=== PATIENT | female | born 1960 | race Two or more races ===

== ENCOUNTER 2017-02-28 07:00 | Day surgery (SDC) | payer OTHER ==
[2017-02-21 15:42] VITALS: BMI 32.1
[2017-02-28] MEDS ORDERED: LIDOCAINE HCL 1%, 10 MG/ML (20ML VIAL) ONE (07:49)
[2017-02-28] MEDS ORDERED: ROPIVACAINE HCL 0.5% 30ML VIAL ONE (07:49)
[2017-02-28] MEDS ORDERED: DEXAMETHASONE SOD PHOSPHATE/PF 10 MG/ML SDV ONE (07:49)
--- NOTE | 2017-02-28 08:23 | HP ---
[facility]ellite [facility] - Chief Complaint Chief Complaint: left shoulder pain History of Present Illness: left shoulder pain, decreased ROM History Source: Patient Limitations to Obtaining History: No Limitations - Past Medical History Allergies/Adverse Reactions: Allergies Allergy/AdvReac Type Severity Reaction Status Date / Time No Known Drug Allergies Allergy Verified 02/21/17 15:54 - Current Medications Current Medications: Home Medications Medication Instructions Recorded Insulin Detemir [Levemir Flexpen] 40 unit SQ DAILY 04/26/12 Simvastatin [Zocor -] 40 mg PO HS 04/26/12 Sitagliptin Phos/Metformin HCl 1 each PO BID 04/26/12 [Janumet 50-1,000 mg Tablet] Fluticasone/Salmeterol [Advair 1 each IH PRN PRN 02/21/17 250-50 Diskus] Ibuprofen 800 mg PO PRN PRN 02/21/17 Metoprolol Succinate [Toprol Xl -] 25 mg PO BID 02/21/17 Satellite Physical Exam - Physical Examination Vital Signs: Vital Signs Period Temp Pulse Resp BP Sys/[place]ango Pulse Ox Last 24 Hr 97.5 F 94 16 129/74 97 General Appearance: Well Nourished ENT: Clear Lung: Clear to auscultation Heart: Regular rate & rhythm Breasts: Soft Abdomen: Soft Extremities: No edema Satellite Impression/Plan - Impression/Plan Impression: left shoulder impingement syndrome Operative Procedure: left shoulder arthroscopy, subacromial decompression Date to be Performed: 02/28/17
[2017-02-28] MEDS ORDERED: MIDAZOLAM HCL 2 MG/2 ML SINGLE DOSE VIAL ONE ×2 (08:26)
[2017-02-28] MEDS ORDERED: DEXAMETHASONE SOD PHOSPHATE 4 MG/1 ML VIAL ONE (09:28)
[2017-02-28] MEDS ORDERED: ceFAZolin SODIUM 1 GM VIAL ONE (09:28)
[2017-02-28] MEDS ORDERED: ROCURONIUM BROMIDE 50 MG/5 ML VIAL ONE (09:29)
[2017-02-28] MEDS ORDERED: LIDOCAINE HCL/PF 2% SDV 5ML VIAL ONE (09:29)
[2017-02-28] MEDS ORDERED: ceFAZolin SODIUM 1 GM VIAL IVPB ONE (09:35)
[2017-02-28] MEDS ORDERED: GLYCOPYRROLATE 0.2 MG/1 ML VIAL ONE ×2 (10:44)
[2017-02-28] MEDS ORDERED: NEOSTIGMINE METHYLSULFATE 0.5 MG/ML - 10 ML MDV ONE (10:44)
--- NOTE | 2017-02-28 10:49 | OP ---
Operative Note - Note: Operative Date: 02/28/17 Pre-Operative Diagnosis: left shoulder impingement, adhesive capsulitis Operation: left shoulder arthroscopy, subacromial decompression, manipulation under anesthesia Findings: significant adhesive capsulitis Post-Operative Diagnosis: Same as Pre-op Surgeon: Aguilar Herrera Anesthesiologist/MANUFACTURING ADVISOR: Ajith Ansari Anesthesia: General Specimens Removed: shavings Estimated Blood Loss (mls): 50 Drains, Volume Out (mls): 0 Blood Volume Replaced (mls): 0 Fluid Volume Replaced (mls): 700 Operative Report Dictated: Yes
[2017-02-28] MEDS ORDERED: ONDANSETRON 4 MG/2 ML VIAL IVPUSH PRN (11:16)
[2017-02-28] MEDS ORDERED: PROMETHAZINE HCL 25 MG/1 ML VIAL IVPB PRN (11:16)
[2017-02-28] MEDS ORDERED: LACTATED RINGERS SOLUTION 1,000 ML IV SCH (11:30)
[2017-02-28 13:00] VITALS: TEMP 98
--- NOTE | 2017-02-28 13:07 | OP ---
DATE OF OPERATION: 02/28/2017 PREOPERATIVE DIAGNOSIS: Left shoulder subacromial impingement and adhesive capsulitis. POSTOPERATIVE DIAGNOSIS: Left shoulder subacromial impingement and adhesive capsulitis. PROCEDURE: Left shoulder arthroscopy, subacromial decompression, and manipulation under anesthesia. SURGEON: Aguilar Herrera MD TERRESTRIAL ECOLOGIST: None. ANESTHESIOLOGIST: Ajith Ansari MD ANESTHESIA: Left interscalene block and LMA anesthesia. DRAINS: None. COMPLICATIONS: None. SPECIMENS: Arthroscopic shavings. BLOOD LOSS: Minimal/50 mL. BLOOD GIVEN: None. FLUID REPLACEMENT: PlasmaLyte, 700 mL. INDICATIONS: This patient is a 56-year-old female with a preoperative diagnosis of significant left shoulder adhesive capsulitis/frozen shoulder and subacromial impingement syndrome. After understanding the potential risks, complications, alternatives, and benefits of surgery versus nonsurgical treatment, the patient elected to undergo this procedure. The patient understands clearly (explained in both [place]ic and [place]alander) that she is prone to getting a frozen shoulder. She needs to move it even if it hurts. If she does not move it postoperatively, she will have a recurrence of her adhesive capsulitis/frozen shoulder. She understands this, and other potential risks and complications were discussed, and she has elected to undergo this procedure. DESCRIPTION OF PROCEDURE: The patient was brought to the operating room, peripheral IV placed, IV sedation was given. Left interscalene block was performed. LMA anesthesia was induced. She was placed into the beach-chair position with ample padding throughout. The left upper extremity was prepped and draped in a sterile fashion. The bony landmarks were marked out with a marking pen. Posterior portal was established with a No. 11 scalpel blade, and the arthroscope was introduced into the glenohumeral joint. Manipulation under anesthesia had been done just prior to making the incision, manipulating in all planes including forward flexion, abduction. Prior to manipulation, she was only able to actively forward flex and abduct her to about 95 degrees. I was able to manipulate her well past that point and felt several points of release. Through the posterior portal, a small hematoma was removed. The glenohumeral joint looked good. There was no osteoarthritis. The biceps tendon was intact. The rotator cuff looked good. The labrum looked good. There was no intraarticular pathology. Next, out attention turned to the subacromial space. The lateral portal was established first under direct visualization with a spinal needle, then, a No. 1 scalpel blade, then, a Green cannula. Patient had inflammatory bursitis. ArthroCare Wand was introduced into the subacromial space, and extensive debridement was done, soft tissue subacromial decompression bursectomy. This revealed a large subacromial bony spur. This was removed with a 5.5-mm oval bur and shaver. Debris was removed with a shaver. There was no subclavicular spur. It was smoothed out with a bur in reverse and a shaver. Overall, it looked quite good. Photographs were taken. I put the arm through a full range of motion. Under direct visualization, there were no points of bony impingement with the rotator cuff. The top surface of the rotator cuff looked fine. There were no tears whatsoever. The area was copiously irrigated and washed out. All debris removed. Arthroscopy fluid removed. Portals were closed with 3-0 nylon sutures. The area was then covered with Xeroform and 4-inch Aquacel dressing. Total operative time was about 40 minutes. There were no complications during the case. Patient tolerated the procedure well and was brought to the ambulatory recovery room in stable condition. Josh [id number]
[2017-02-28 17:06] VITALS: BP 113/66; PULSE 88
--- NOTE | 2017-03-01 10:57 | PATH ---
Surgical Pathology Report Patient Name: AIDE ZUÑIGA Med. Rec. #: [id number] /Age/Gender: 1960 (Age: 56) / F Account: [id number] Location: [facility] SURGICAL Taken: 02/28/2017 Received: 02/28/2017 Reported: 03/01/2017 Physicians: Aguilar Herrera M.D. Specimen(s) Received LEFT SHOULDER SHAVINGS Clinical History Left shoulder tear Final Diagnosis LEFT SHOULDER, ARTHROSCOPIC SHAVING: PORTIONS OF SYNOVIUM, CARTILAGE, SKELETAL MUSCLE AND BONE CONSISTENT WITH ARTHROSCOPIC SHAVINGS. Electronically Signed Rafael Baez M.D. Gross Description Received in formalin, labeled "left shoulder shaving," is a 4.5 x 3.8 x 0.5 cm. aggregate of norman-yellow soft tissue fragments. A tour sales representative portion is submitted in one cassette. /02/28/201702/28/2017
== END 2017-02-28 16:10 | disposition home or self-care (01) ==
LOC: JASU-SURG 07:00
PROVIDERS: ATTEND Orthopaedic Surgery
PROC: 0RBK4ZZ Excision of Left Shoulder Joint, Percutaneous Endoscopic Approach (ICD-10-PCS; principal; 2017-02-28 09:00)
DX: M75.42 Impingement syndrome of left shoulder (principal); M75.02 Adhesive capsulitis of left shoulder
CPT/HCPCS: 88304-TC; 94760